=== PATIENT | female | born 1980 | race Caucasian/White ===

== ENCOUNTER → 2018-05-15 | Outpatient (CLI) | payer OTHER | LOC: M CARPUL 09:12 | DX: R94.31 Abnormal electrocardiogram [ECG] [EKG] (principal) | CPT/HCPCS: 93306 ==

== ENCOUNTER → 2018-10-31 | Outpatient (REF) | payer OTHER | LOC: M SFHCADAM 12:19 | PROVIDERS: ATTEND Family Medicine | DX: Z12.4 Encounter for screening for malignant neoplasm of cervix (principal) ==

== ENCOUNTER → 2019-06-01 | Outpatient (REF) | payer OTHER | LOC: M LAB REF 12:57 | PROVIDERS: ATTEND Physician Assistant | DX: R05 Cough (principal) ==